=== PATIENT | male | born 2000 | race African-American/Black ===

== ENCOUNTER 2021-12-07 10:37 | Inpatient (IN) | payer BC, SELFPAY ==
--- NOTE | 2021-12-07 10:48 | ED_ITS ---
HPI - Psych General Chief Complaint: Psychiatric Symptoms Stated Complaint: section 12 Time Seen by Provider: 12/07/21 10:48 Source: patient Mode of arrival: EMS Limitations: no limitations History of Present Illness MD complaint: suicidal ideation and feels depressed Onset (ago): week(s) (couple) Duration: getting worse History of same: Yes Relieving factors: none Exacerbating factors: none Context: recent alcohol abuse Associated psychiatric symptoms: depression and suicidal ideation Associated symptoms: denies other symptoms Treatments prior to arrival: placed on mental health hold If self harm: admits thoughts of self harm Related Data Allergies Allergy/AdvReac Type Severity Reaction Status Date / Time No Known Allergies Allergy Verified 12/07/21 11:09 Review of Systems Review of Systems: Constitutional : No Fever, No Chills ENT/Mouth : No Ear Pain, No Nasal Congestion, No sore throat Eyes: No Eye Pain, No Swelling, No Redness Cardiovascular : No Chest Pain, No SOB Respiratory : No Cough, No Sputum, No Dyspnea Gastrointestinal : No Nausea, No Vomiting, No Diarrhea, No Hematochezia, No Melena Genitourinary : No Dysuria, No Urinary Frequency, No Hematuria Musculoskeletal : No Myalgias Skin : No Skin Lesions, No rash Neuro : No Weakness, No Numbness, No Paresthesias, No Dizziness, No Headache Psych : positive Anxiety, positive Depression, positive SI no HI Heme/Lymph: No Lymphadenopathy Endocrine : No Polyuria, No Polydipsia All other systems reviewed and are negative [facility] Past Medical History Attestation statement: The following information was validated with the patient. Medical History PTSD (post-traumatic stress disorder) Social History Social History Alcohol intake: current Substance Use Type: Marijuana Advance Directives: No Advance Directives Information Provided: No Physical Exam Vital Signs: Vital Signs: Last Vital Signs Temp 98.8 F 12/07/21 10:50 Pulse 93 12/07/21 10:50 Resp 18 12/07/21 10:50 BP 161/85 H 12/07/21 10:50 Pulse Ox 100 12/07/21 10:50 BMI result Body Mass Index 24.1 Appearance: Alert. Oriented X3. No acute distress. Calm and cooperative Eyes: Pupils equal, round and reactive to light. ENT: Pharynx normal. Neck: Normal inspection. Neck supple. CVS: Normal heart rate and rhythm. Pulses normal. Respiratory: No respiratory distress. Breath sounds normal. Abdomen: Soft and nontender. Skin: Skin warm and dry. Normal skin color. Normal skin turgor. Extremities: No lower extremity edema. No calf ttp Neuro: Oriented X 3. No motor deficit. No sensory deficit. Cn 2-12 intact Course Course Course Narrative: Physician observation started at 1147am. Patient placed in physician observation because the patient needed more time for CARE team to assess the need for inpatient psych admission. At the time observation was started the patient's vitals were stable, patient is alert and oriented, Neuro: nonfocal, CV RRR, Lungs clear inpatient bed search per CARE team MDM - Psych MDM Narrative Medical decision making narrative: 21 yo male with hx of PTSD and recent dx of bipolar here with SI and worsening depression at this time on section 12 by counselor from [facility] - will need clearance labs and CARE team consult Lab Data Result diagrams: 12/07/21 11:45 12/07/21 11:45 Labs: Lab Results 12/07/21 12/07/21 12/07/21 Range/Units 11:44 11:45 11:45 WBC 8.2 (4.8-10.8) X10*3/uL RBC 5.55 (4.60-5.80) X10*6/uL Hgb 16.0 (14.0-18.0) g/dl Hct 46.8 (42.0-52.0) % MCV 84.3 (80.0-98.0) fL MCH 28.8 (27.0-33.0) pg MCHC 34.2 (31.0-36.0) g/dl RDW 16.0 (11.0-16.0) % Plt Count 271 (160-400) X10*3/uL MPV 9.1 L (9.4-12.4) fL Immature Gran % (Auto) 0.5 H (0.0-0.4) % Neut % (Auto) 73.0 (45-73) % Lymph % (Auto) 19.5 L (20-40) % Tompkins % (Auto) 5.3 (2-11) % Eos % (Auto) 1.5 (0-4) % Baso % (Auto) 0.2 (0-2) % Lymph # (Auto) 1.6 (1.2-4.9) X10*3/uL Tompkins # (Auto) 0.4 (0.1-1.2) X10*3/uL Eos # (Auto) 0.1 (0.0-0.4) X10*3/uL Baso # (Auto) 0.0 (0.0-0.2) X10*3/uL Abs Immat Gran (auto) 0.04 H (0.00-0.03) X10*3/uL Absolute Neuts (auto) 6.0 (2.0-8.3) x10*3/uL Absolute Nucleated RBC 0.000 (0.0-0.012) X10*3/uL Nucleated RBC % (auto) 0.0 (0.0-0.2) /100WBC Sodium 139 (135-145) mmol/L Potassium 4.6 (3.3-5.1) mmol/L Chloride 105 (96-108) mmol/L Carbon Dioxide 25 (22-29) mmol/L Anion Gap 14 (12-20) BUN 8 L (9-16) mg/dL Creatinine 0.78 (0.5-1.4) mg/dL Estim Creat Clear Calc 144.9 Estimated GFR > 60 Random Glucose 81 (60-115) mg/dL Calcium 10.1 (8.4-10.2) mg/dL Magnesium 1.9 (1.6-2.6) mg/dL Total Bilirubin 0.6 (0.0-1.0) mg/dL AST 20 (5-37) U/L ALT 10 (0-40) U/L Alkaline Phosphatase 94 (39-117) U/L Total Protein 8.2 H (6.5-8.0) g/dL Albumin 4.8 (3.5-5.0) g/dL Urine Test (NEGATIVE) Urine Opiates Screen (Not Detect) Urine Fentanyl Screen (Not Detect) Ur Barbiturates Screen (Not Detect) Ur Phencyclidine Scrn (Not Detect) Ur Amphetamines Screen (Not Detect) U Benzodiazepines Scrn (Not Detect) Urine Cocaine Screen (Not Detect) U Marijuana (THC) Screen (Not Detect) Ethyl Alcohol mg/dL COVID-19 (DARRICK) Negative (Negative) COVID-19 Clin Com See Note 12/07/21 12/07/21 12/07/21 Range/Units 11:45 15:42 15:42 WBC (4.8-10.8) X10*3/uL RBC (4.60-5.80) X10*6/uL Hgb (14.0-18.0) g/dl Hct (42.0-52.0) % MCV (80.0-98.0) fL MCH (27.0-33.0) pg MCHC (31.0-36.0) g/dl RDW (11.0-16.0) % Plt Count (160-400) X10*3/uL MPV (9.4-12.4) fL Immature Gran % (Auto) (0.0-0.4) % Neut % (Auto) (45-73) % Lymph % (Auto) (20-40) % Tompkins % (Auto) (2-11) % Eos % (Auto) (0-4) % Baso % (Auto) (0-2) % Lymph # (Auto) (1.2-4.9) X10*3/uL Tompkins # (Auto) (0.1-1.2) X10*3/uL Eos # (Auto) (0.0-0.4) X10*3/uL Baso # (Auto) (0.0-0.2) X10*3/uL Abs Immat Gran (auto) (0.00-0.03) X10*3/uL Absolute Neuts (auto) (2.0-8.3) x10*3/uL Absolute Nucleated RBC (0.0-0.012) X10*3/uL Nucleated RBC % (auto) (0.0-0.2) /100WBC Sodium (135-145) mmol/L Potassium (3.3-5.1) mmol/L Chloride (96-108) mmol/L Carbon Dioxide (22-29) mmol/L Anion Gap (12-20) BUN (9-16) mg/dL Creatinine (0.5-1.4) mg/dL Estim Creat Clear Calc Estimated GFR Random Glucose (60-115) mg/dL Calcium (8.4-10.2) mg/dL Magnesium (1.6-2.6) mg/dL Total Bilirubin (0.0-1.0) mg/dL AST (5-37) U/L ALT (0-40) U/L Alkaline Phosphatase (39-117) U/L Total Protein (6.5-8.0) g/dL Albumin (3.5-5.0) g/dL Urine Test NEGATIVE (NEGATIVE) Urine Opiates Screen Not Detected (Not Detect) Urine Fentanyl Screen Not Detected (Not Detect) Ur Barbiturates Screen Not Detected (Not Detect) Ur Phencyclidine Scrn Not Detected (Not Detect) Ur Amphetamines Screen Not Detected (Not Detect) U Benzodiazepines Scrn Not Detected (Not Detect) Urine Cocaine Screen Not Detected (Not Detect) U Marijuana (THC) Screen POSITIVE H (Not Detect) Ethyl Alcohol < 10 mg/dL COVID-19 (DARRICK) (Negative) COVID-19 Clin Com Discharge Plan Discharge Clinical Impression: Depression Patient Disposition: Still a Patient
[2021-12-07 10:50] VITALS: BP 150/90; BP 161/85; PULSE 93; RESP 18; TEMP 37.1; O2SAT 100; BMI 24.1
[2021-12-07 11:52] LABS: MANUAL DIFF FLAG NO
[2021-12-07 12:01] LABS: Basophils Percent Auto 0.2 % (0-2); Eosinophils Absolute Auto 0.1 X10*3/uL (0.0-0.4); Eosinophils Percent Auto 1.5 % (0-4); Hematocrit 46.8 % (42.0-52.0); Imm Gran Abs Auto 0.04 X10*3/uL (0.00-0.03); Imm Gran Pct Auto 0.5 % (0.0-0.4); Lymphocytes Absolute Auto 1.6 X10*3/uL (1.2-4.9); Lymphocytes Percent Auto 19.5 % (20-40); Mean Corpuscular HGB Conc 34.2 g/dl (31.0-36.0); Mean Corpuscular Hemoglobin 28.8 pg (27.0-33.0); Mean Corpuscular Volume 84.3 fL (80.0-98.0); Mean Platelet Volume 9.1 fL (9.4-12.4); Monocytes Absolute Auto 0.4 X10*3/uL (0.1-1.2); Monocytes Percent Auto 5.3 % (2-11); Platelet Count 271 X10*3/uL (160-400); Red Blood Count 5.55 X10*6/uL (4.60-5.80); White Blood Count 8.2 X10*3/uL (4.8-10.8)
[2021-12-07 12:07] LABS: COVID-19 Test Negative (Negative)
[2021-12-07] MEDS: Nicotine Polacrilex 2 MG GUM BUCCAL ×2 (12:13→15:03)
[2021-12-07 12:19] LABS: Ethanol < 10 mg/dL
[2021-12-07 12:21] LABS: Alanine Aminotransferase 10 U/L (0-40); Albumin Level 4.8 g/dL (3.5-5.0); Alkaline Phosphatase 94 U/L (39-117); Anion Gap 14 (12-20); Aspartate Amino Transferase 20 U/L (5-37); Bilirubin Total 0.6 mg/dL (0.0-1.0); Blood Urea Nitrogen 8 mg/dL (9-16); Calcium 10.1 mg/dL (8.4-10.2); Carbon Dioxide 25 mmol/L (22-29); Chloride 105 mmol/L (96-108); Creatinine Clr Calc Pharmacy 144.9; Estimated Glomerular Filt Rate > 60; Glucose Random 81 mg/dL (60-115); Magnesium 1.9 mg/dL (1.6-2.6); Potassium 4.6 mmol/L (3.3-5.1); Sodium 139 mmol/L (135-145); Total Protein 8.2 g/dL (6.5-8.0)
[2021-12-07 16:06] LABS: Amphetamine Screen Urine Not Detected (Not Detect); Barbiturates, Urine Not Detected (Not Detect); Benzodiazepines Screen Urine Not Detected (Not Detect); Cannabinoid Screen Urine POSITIVE (Not Detect); Cocaine Screen Urine Not Detected (Not Detect); Fentanyl, urine Not Detected (Not Detect); Opiate Screen Urine Not Detected (Not Detect); Phencyclidine Screen Urine Not Detected (Not Detect); UPreg QC Valid YES; Urine Pregnancy NEGATIVE (NEGATIVE)
[2021-12-07 17:27] VITALS: BP 129/81; PULSE 64; RESP 16; TEMP 36.8; O2SAT 98
--- NOTE | 2021-12-07 18:08 | MHC.CARE ---
Patient evaluated by the CARE Team to need inpatient psychiatric care, will likely be admitted tomorrow. He is not on a Section 12A and if he asks to leave he cannot be discharged without extensive safety planning and coordination with [facility].
[2021-12-07 19:21] VITALS: BP 145/67; PULSE 60; RESP 14; TEMP 37.1; O2SAT 99
--- NOTE | 2021-12-08 | ECG_ITS ---
Test Reason : MEDICAL CLEARANCE Blood Pressure : / mmHG Vent. Rate : 065 BPM Atrial Rate : 065 BPM P-R Int : 192 ms QRS Dur : 102 ms QT Int : 352 ms P-R-T Axes : 063 -26 045 degrees QTc Int : 366 ms Normal sinus rhythm with sinus arrhythmia Incomplete right bundle branch block Borderline ECG No previous ECGs available Referred By: Naina Pettit Electronically Signed By:Bill Pitts
[2021-12-08 01:58] VITALS: BP 130/68; PULSE 61; RESP 17; TEMP 36.8; O2SAT 100
[2021-12-08] MEDS: Nicotine Polacrilex 2 MG GUM BUCCAL ×5 (03:01→22:07)
--- NOTE | 2021-12-08 05:53 | PC.NURSE ---
Patient slept through the night, no distress observed/reported, behavior calm and cooperative, unable to verify medication due to pharmacy issue, disposition per care team is section 12 inpatient bed search, will continue to monitor.
--- NOTE | 2021-12-08 07:22 | PC.NURSE ---
patient appears to remain asleep at present respirations are even and unlabored, patient appears in no distress
[2021-12-08 07:38] VITALS: BP 141/79; PULSE 70; RESP 13; TEMP 36.9; O2SAT 99
[2021-12-08 15:57] VITALS: BMI 23.1
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
--- NOTE | 2021-12-08 19:12 | PC.NURSE ---
Patient submitted 3 day note.
[2021-12-08 20:00] VITALS: BP 144/79; PULSE 72; RESP 18; TEMP 36.8; O2SAT 99
[2021-12-08] MEDS: traZODone HCL 50 MG TABLET PO (22:07)
[2021-12-08] MEDS: hydrOXYzine HCL 25 MG TABLET PO (22:07)
[2021-12-09] MEDS: hydrOXYzine HCL 25 MG TABLET PO (05:03)
[2021-12-09 07:00] VITALS: BMI 22.9
[2021-12-09 08:20] VITALS: BP 126/72; PULSE 60; RESP 16; TEMP 36.7; O2SAT 98
[2021-12-09 09:18] LABS: Estimated Average Glucose 82 mg/dL; Hemoglobin A1c % 4.5 %
[2021-12-09 09:45] LABS: Alanine Aminotransferase 9 U/L (0-40); Albumin Level 4.3 g/dL (3.5-5.0); Alkaline Phosphatase 81 U/L (39-117); Anion Gap 11 (12-20); Aspartate Amino Transferase 18 U/L (5-37); Bilirubin Total 0.9 mg/dL (0.0-1.0); Blood Urea Nitrogen 9 mg/dL (9-16); Calcium 9.8 mg/dL (8.4-10.2); Carbon Dioxide 26 mmol/L (22-29); Chloride 105 mmol/L (96-108); Cholesterol 146 mg/dL; Creatinine Clr Calc Pharmacy 141.3; Estimated Glomerular Filt Rate > 60; Glucose Fasting 67 mg/dL (60-99); HDL Cholesterol 48 mg/dL; LDL Cholesterol Calculated 82 mg/dl; Potassium 4.4 mmol/L (3.3-5.1); Sodium 138 mmol/L (135-145); Total Protein 7.3 g/dL (6.5-8.0); Triglycerides 80 mg/dL
[2021-12-09 09:58] LABS: Thyroid Stimulating Hormone 1.07 uIU/mL (0.32-4.0)
[2021-12-09 10:19] LABS: Folate 11.9 ng/mL (> or = 4.0); Vitamin B12 280 pg/mL (200-900)
[2021-12-09] MEDS: Nicotine Polacrilex 2 MG GUM BUCCAL (14:50)
[2021-12-09 18:00] VITALS: BP 123/69; PULSE 59; RESP 16; TEMP 36.7; O2SAT 99
--- NOTE | 2021-12-09 20:01 | P.PNPSI_ITS ---
Subjective Subjective Date of Service: 12/09/21 Reason For Visit: SI Subjective Notes: [place]patrick Warning, Conditional Voluntary and 3 Day Healthcare Proxy: No Guardianship: No Medical Problems Affecting Mental Status: No Interim History: Patient seen and discussed with team. Patient evaluated this today and upon interview he reports Im doing better, I think im doing good. Today he was able to resolve his housing situation, spoke with landlord to sort out a lease. He is also working on getting his car registered. Continues to report interest in starting medication to treat depression, as he says he struggles with it daily and feels like this makes it hard to feel like i'm adding to society, I can barely function. In the milieu, patient is safe and appropriate in behavior. Denies SI/SIB/HI upon inquiry. Denies irritability or assaultive ideation. Says he feels safe. Medication Compliance: Yes Side effects from medications: No Attending Groups: Yes Review of Systems Acute medical concerns: No Medical Review of Systems: unchanged Mental Status Exam Mental Status Exam Narrative: A&O. Well groomed, casual attire, long hair in dreadlocks. Better eye contact, attentive. No Tics or Tremors. No abnormal involuntary movements. Calm, somewhat guarded but overall cooperative and engaged. Non-pressured speech, spontaneous with regular rate and rhythm, normal volume and prosody. No prolonged speech latency or dysarthria. Mood is ?depressed,? affect is blunted. Currently denies SI/SIB/HI upon inquiry. Denies A/VH or delusional thought content. Thoughts are coherent, organized. No known cognitive or memory impairment. Insight/ Judgment fair and adequate. Diagnostics Vital Signs (24Hr): Vital Signs - 24 hr 12/09/21 08:20 12/09/21 18:00 Temperature 98.0 F 98.0 F Pulse Rate 60 59 Respiratory Rate 16 16 Blood Pressure 126/72 123/69 Pulse Oximetry 98 99 BMI result Body Mass Index 22.9 Labs Results: 12/07/21 11:45 12/09/21 08:45 Labs: Laboratory Results - last 48 hr 12/09/21 12/09/21 12/09/21 08:45 08:45 08:45 Sodium 138 Potassium 4.4 Chloride 105 Carbon Dioxide 26 Anion Gap 11 L BUN 9 Creatinine 0.80 Estim Creat Clear Calc 141.3 Estimated GFR > 60 Fasting Glucose 67 Estimat Average Glucose 82 Hemoglobin A1c % 4.5 Calcium 9.8 Total Bilirubin 0.9 AST 18 ALT 9 Alkaline Phosphatase 81 Total Protein 7.3 Albumin 4.3 Triglycerides 80 Cholesterol 146 LDL Cholesterol, Calc 82 HDL Cholesterol 48 Vitamin B12 280 Folate 11.9 TSH 1.07 Medications Medications Current Medications Acetaminophen (Acetaminophen 325 Mg Tablet) 650 mg PO Q6H PRN PRN Reason: Headache/Pain Mild Scale (1-3) Al Hydroxide/Mg Hydroxide (Magnesium Hydrox/Alum Hydrox 30 Ml Oral.Susp) 30 ml PO Q6H PRN PRN Reason: Heartburn/Nausea Hydroxyzine HCl (Hydroxyzine Hcl 25 Mg Tablet) 25 mg PO Q6H PRN PRN Reason: Anxiety Last Admin: 12/10/21 03:31 Dose: 25 mg Documented by: [place] Carbonate ([place] Carbonate Er 300 Mg Tablet.Er) 300 mg PO BEDTIME [facility] Last Admin: 12/09/21 22:55 Dose: 300 mg Documented by: Magnesium Hydroxide (Milk Of Magnesia 30 Ml Oral.Susp) 30 ml PO DAILY PRN PRN Reason: Constipation Nicotine Polacrilex (Nicotine Polacrilex 2 Mg Gum) 2 mg BUCCAL Q2H PRN PRN Reason: Nicotine Cravings Last Admin: 12/09/21 14:50 Dose: 2 mg Documented by: Non-Formulary Medication (Testosterone Cypionate) 65 mg SUBCUT Fr@1200 [facility] Stop: 12/10/21 12:01 Trazodone HCl (Trazodone Hcl 50 Mg Tablet) 50 mg PO BEDTIME PRN PRN Reason: Insomnia Last Admin: 12/10/21 03:32 Dose: 50 mg Documented by: Allergies Allergies Allergy/AdvReac Type Severity Reaction Status Date / Time No Known Allergies Allergy Verified 12/07/21 11:09 Assessment & Plan Assessment & Plan (1) Bipolar II disorder: Status: Acute Code(s): F31.81 - Bipolar II disorder (2) Alcohol use disorder, mild, abuse: Status: Acute Code(s): F10.10 - Alcohol abuse, uncomplicated (3) Post traumatic stress disorder (PTSD): Status: Acute Code(s): F43.10 - Post-traumatic stress disorder, unspecified Plan Aria is a 21 y.o. transgender male, prefers he/him pronouns. He carries a dx of PTSD and Bipolar DO. He presented to [facility] on 12/07/21 via 12a from counselor at [facility] due to SI and worsening depression. Disclosed he recently had intrusive thoughts to jump from friend?s car. He has been diagnosed with bipolar disorder, unclear if he has had a manic episode, however endorses hx of hypomanic sx and has had SE of increased agitation on serotonergic medication. Has been engaging in daily drinking behavior, 3-5 drinks. Denies withdrawal. Signed a 3 day notice. Plan: Pt reports some benefit on abilify TRINIDAD, recently increased to 300 mg. He is interested in medication to target sx of depression. Discussed lamictal, lithium. Pt requested educational handouts and would like to discuss this further tomorrow. 12/09: Start lithium ER 300 mg QHS for sx of depression, mood instability, and hx of SI. Renal labs wnl. Monitor response to medications. Monitor for safety in the milieu. Discharge on stabilization. Patient seen. Chart reviewed. Discussed with team. Obtain collateral contact info?as needed I spent minutes with the patient and/or on the patient floor today, great er than?50% of which was spent counseling/coordinating care. Patient educated on: diagnosis, medication risk/benefits and therapeutic strategies Reason for contiued inpatient stay Substantial Risk for: harm to self, rapid decompensation and med/psych decompensation
[2021-12-09] MEDS: traZODone HCL 50 MG TABLET PO (22:25)
[2021-12-09] MEDS: Lithium Carbonate ER 300 MG TABLET.ER PO (22:55)
[2021-12-10] MEDS: hydrOXYzine HCL 25 MG TABLET PO ×2 (03:31→21:38)
[2021-12-10] MEDS: traZODone HCL 50 MG TABLET PO ×3 (03:32→22:45)
[2021-12-10 08:30] VITALS: BP 133/62; PULSE 60; RESP 15; TEMP 36.8; O2SAT 98
--- NOTE | 2021-12-10 15:15 | P.PNPSI_ITS ---
Subjective Subjective Date of Service: 12/10/21 Reason For Visit: SI Interim History: pt found at the end of his visit with friend. agreeable, cooperative. would prefer to discharge today. able to wait until monday. no complaints or requests. planning to remain at the [employer] through the end of the semester. no SI since day of hospitalization. per staff, 3-day up 12/13. dep 04/17. no anx. no AVH. overwhelmed with life. nightmares every other night for the past 3 weeks. isolative. attending groups. up at 0330, got trazodone and atarax. pt says he has no coping skills. Mental Status Exam Mental Status Exam Narrative: A&O. Well groomed, casual attire, long hair in dreadlocks. Better eye contact, attentive. No Tics or Tremors. No abnormal involuntary movements. Calm, somewhat guarded but overall cooperative and engaged. Non-pressured speech, spontaneous with regular rate and rhythm, normal volume and prosody. No prolonged speech latency or dysarthria. Mood is ?fine,? affect is flexible. Currently denies SI/SIB/HI upon inquiry. Denies A/VH or delusional thought content. Thoughts are coherent, organized. No known cognitive or memory impairment. Insight/ Judgment fair and adequate. Diagnostics Vital Signs (24Hr): Vital Signs - 24 hr 12/09/21 18:00 12/10/21 08:30 Temperature 98.0 F 98.2 F Pulse Rate 59 60 Respiratory Rate 16 15 Blood Pressure 123/69 133/62 Pulse Oximetry 99 98 BMI result Body Mass Index 22.9 Labs Results: 12/07/21 11:45 12/09/21 08:45 Labs: Laboratory Results - last 48 hr 12/09/21 12/09/21 12/09/21 08:45 08:45 08:45 Sodium 138 Potassium 4.4 Chloride 105 Carbon Dioxide 26 Anion Gap 11 L BUN 9 Creatinine 0.80 Estim Creat Clear Calc 141.3 Estimated GFR > 60 Fasting Glucose 67 Estimat Average Glucose 82 Hemoglobin A1c % 4.5 Calcium 9.8 Total Bilirubin 0.9 AST 18 ALT 9 Alkaline Phosphatase 81 Total Protein 7.3 Albumin 4.3 Triglycerides 80 Cholesterol 146 LDL Cholesterol, Calc 82 HDL Cholesterol 48 Vitamin B12 280 Folate 11.9 TSH 1.07 Medications Medications Current Medications Acetaminophen (Acetaminophen 325 Mg Tablet) 650 mg PO Q6H PRN PRN Reason: Headache/Pain Mild Scale (1-3) Al Hydroxide/Mg Hydroxide (Magnesium Hydrox/Alum Hydrox 30 Ml Oral.Susp) 30 ml PO Q6H PRN PRN Reason: Heartburn/Nausea Hydroxyzine HCl (Hydroxyzine Hcl 25 Mg Tablet) 25 mg PO Q6H PRN PRN Reason: Anxiety Last Admin: 12/10/21 03:31 Dose: 25 mg Documented by: [place] Carbonate ([place] Carbonate Er 300 Mg Tablet.Er) 300 mg PO BEDTIME [facility] Last Admin: 12/09/21 22:55 Dose: 300 mg Documented by: Magnesium Hydroxide (Milk Of Magnesia 30 Ml Oral.Susp) 30 ml PO DAILY PRN PRN Reason: Constipation Nicotine Polacrilex (Nicotine Polacrilex 2 Mg Gum) 2 mg BUCCAL Q2H PRN PRN Reason: Nicotine Cravings Last Admin: 12/09/21 14:50 Dose: 2 mg Documented by: Trazodone HCl (Trazodone Hcl 50 Mg Tablet) 50 mg PO BEDTIME PRN PRN Reason: Insomnia Last Admin: 12/10/21 03:32 Dose: 50 mg Documented by: Allergies Allergies Allergy/AdvReac Type Severity Reaction Status Date / Time No Known Allergies Allergy Verified 12/07/21 11:09 Assessment & Plan Assessment & Plan (1) Bipolar II disorder: Status: Acute Code(s): F31.81 - Bipolar II disorder (2) Alcohol use disorder, mild, abuse: Status: Acute Code(s): F10.10 - Alcohol abuse, uncomplicated (3) Post traumatic stress disorder (PTSD): Status: Acute Code(s): F43.10 - Post-traumatic stress disorder, unspecified Plan Aria is a 21 y.o. transgender male, prefers he/him pronouns. He carries a dx of PTSD and Bipolar DO. He [place] [facility] [place] via 12a from counselor at [facility] due to SI and worsening depression. Disclosed he recently had intrusive thoughts to jump from friend?s car. He has been diagnosed with bipolar disorder, unclear if he has had a manic episode, however endorses hx of hypomanic sx and has had SE of increased agitation on serotonergic medication. Has been engaging in daily drinking behavior, 3-5 drinks. Denies withdrawal. Signed a 3 day notice. Plan: Pt reports some benefit on abilify TRINIDAD, recently increased to 300 mg. He is interested in medication to target sx of depression. Discussed nakul l ithium. Pt requested educational handouts and would like to discuss this further tomorrow. 12/09: Start lithium ER 300 mg QHS for sx of depression, mood instability, and hx of SI. Renal labs wnl. 12/10: no change in mgmt Monitor response to medications. Monitor for safety in the milieu. Discharge on stabilization. Patient seen. Chart reviewed. Discussed with team. Obtain collateral contact info?as needed I spent ___25___ minutes with the patient and/or on the patient floor today, greater than?50% of which was spent counseling/coordinating care. Reason for contiued inpatient stay Substantial Risk for: rapid decompensation
[2021-12-10] MEDS: Nicotine Polacrilex 2 MG GUM BUCCAL (15:16)
--- NOTE | 2021-12-10 15:39 | PC.NURSE ---
This RN offered to administer testosterone provided by hospital pharmacy. Patient reported that they have taken this specific brand before and had an adverse reaction. This RN notified pharmacy and Masha Gutierrez. Patient reported a preference to take their own testosterone from home, but this RN was advised from pharmacy that we are unable to administer patients own medication due to the previous unknown storage conditions of the drug. Masha Gutierrez notified. Patient was notified and verbalized understanding.
[2021-12-10 20:12] VITALS: BP 139/70; PULSE 72; RESP 18; TEMP 36.9; O2SAT 98
[2021-12-10] MEDS: Lithium Carbonate ER 300 MG TABLET.ER PO (21:28)
[2021-12-11 08:00] VITALS: BP 130/69; PULSE 60; RESP 16; TEMP 36.6; O2SAT 100
--- NOTE | 2021-12-11 09:34 | P.PNPSI_ITS ---
Subjective Subjective Date of Service: 12/11/21 Reason For Visit: SI Interim History: pt reports feeling better, denies SI/HI. Pt reports sleeping well. He does not think he needs to be here and hopes to be discharged on Monday. He reports he takes periactin for appetite as needed 4 mg. This was added. Per nursing, visible in unit, social with select peers. 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 Well groomed, casual attire, long hair in dreadlocks. Better eye contact, attentive. No Tics or Tremors. No abnormal involuntary movements. Calm, somewhat guarded but overall cooperative and engaged. Non-pressured speech, spontaneous with regular rate and rhythm, normal volume and prosody. No prolonged speech latency or dysarthria. Mood is ?fine,? affect is flexible. Currently denies SI/SIB/HI upon inquiry. Denies A/VH or delusional thought content. Thoughts are coherent, organized. No known cognitive or memory impairment. Insight/ Judgment fair and adequate. Diagnostics Vital Signs (24Hr): Vital Signs - 24 hr 12/12/21 18:00 12/13/21 07:49 Temperature 98.8 F 98.4 F Pulse Rate 69 70 Respiratory Rate 16 16 Blood Pressure 138/69 123/57 L Pulse Oximetry 96 99 BMI result Body Mass Index 22.9 Labs Results: 12/07/21 11:45 12/09/21 08:45 Labs: Laboratory Results - last 48 hr 12/12/21 18:17 [place] 0.14 L Medications Medications Current Medications Acetaminophen (Acetaminophen 325 Mg Tablet) 650 mg PO Q6H PRN PRN Reason: Headache/Pain Mild Scale (1-3) Al Hydroxide/Mg Hydroxide (Magnesium Hydrox/Alum Hydrox 30 Ml Oral.Susp) 30 ml PO Q6H PRN PRN Reason: Heartburn/Nausea Cyproheptadine HCl (Cyproheptadine Hcl 4 Mg Tablet) 4 mg PO Q6H PRN PRN Reason: anxiety/poor appetite Last Admin: 12/13/21 08:40 Dose: 4 mg Documented by: [place] Carbonate ([place] Carbonate Er 300 Mg Tablet.Er) 300 mg PO BEDTIME [facility] Last Admin: 12/12/21 22:13 Dose: 300 mg Documented by: Magnesium Hydroxide (Milk Of Magnesia 30 Ml Oral.Susp) 30 ml PO DAILY PRN PRN Reason: Constipation Nicotine Polacrilex (Nicotine Polacrilex 2 Mg Gum) 2 mg BUCCAL Q2H PRN PRN Reason: Nicotine Cravings Last Admin: 12/12/21 16:45 Dose: 2 mg Documented by: Trazodone HCl (Trazodone Hcl 50 Mg Tablet) 150 mg PO BEDTIME [facility] Last Admin: 12/12/21 22:12 Dose: 150 mg Documented by: Allergies Allergies Allergy/AdvReac Type Severity Reaction Status Date / Time No Known Allergies Allergy Verified 12/07/21 11:09 Assessment & Plan Assessment & Plan (1) Bipolar II disorder: Status: Acute Code(s): F31.81 - Bipolar II disorder (2) Alcohol use disorder, mild, abuse: Status: Acute Code(s): F10.10 - Alcohol abuse, uncomplicated (3) Post traumatic stress disorder (PTSD): Status: Acute Code(s): F43.10 - Post-traumatic stress disorder, unspecified Plan Aria is a 21 y.o. transgender male, prefers he/him pronouns. He carries a dx of PTSD and Bipolar DO. He presented to [facility] on 12/07/21 via 12a from counselor at [facility] due to SI and worsening depression. Disclosed he recently had intrusive thoughts to jump from friend?s car. He has been diagnosed with bipolar disorder, unclear if he has had a manic episode, however endorses hx of hypomanic sx and has had SE of increased agitation on serotonergic medication. Has been engaging in daily drinking behavior, 3-5 drinks. Denies withdrawal. Signed a 3 day notice. Plan: Pt reports some benefit on abilify TRINIDAD, recently increased to 300 mg. He is interested in medication to target sx of depression. Discussed lamictal, lithium. Pt requested educational handouts and would like to discuss this further tomorrow. 12/09: Start lithium ER 300 mg QHS for sx of depression, mood instability, and hx of SI. Renal labs wnl. 3/4: no change in mgmt 12/11- no med changes, lithium level scheduled for 12/12. Monitor response to medications. Monitor for safety in the milieu. Discharge on stabilization. Patient seen. Chart reviewed. Discussed with team. Obtain collateral contact info?as needed I spent minutes with the patient and/or on the patient floor today, greater than?50% of which was spent counseling/coordinating care. Reason for contiued inpatient stay Substantial Risk for: stable for discharge
[2021-12-11] MEDS: Nicotine Polacrilex 2 MG GUM BUCCAL ×3 (09:55→19:16)
[2021-12-11] MEDS: Cyproheptadine HCl 4 MG TABLET PO (09:55)
[2021-12-11 20:45] VITALS: BP 135/75; PULSE 65; RESP 16; TEMP 36.7; O2SAT 99
[2021-12-11] MEDS: traZODone HCL 50 MG TABLET 150 MG PO (22:04)
[2021-12-11] MEDS: Lithium Carbonate ER 300 MG TABLET.ER PO (22:04)
[2021-12-12 08:00] VITALS: BP 117/64; PULSE 58; RESP 16; TEMP 36.6; O2SAT 99
[2021-12-12] MEDS: Cyproheptadine HCl 4 MG TABLET PO ×2 (08:54→16:45)
--- NOTE | 2021-12-12 09:37 | HO.PSYCHPN ---
Subjective Subjective Date of Service: 12/12/21 Reason For Visit: SI Interim History: pt continues to report feeling better, denies SI/HI. Pt reports sleeping well. He does not think he needs to be here and hopes to be discharged on Monday. He reports he takes periactin for appetite as needed 4 mg. This was added. Per nursing, visible in unit, social with select peers. Medication Compliance: Yes Side effects from medications: No Review of Systems Review of Systems CVS: No c/o chest pain, palpitations, no SOB SCHEDULING MANAGER: No c/o dizziness, headache GI: No c/o Nausea, Vomiting, diarrhea, constipation or heartburn -Denies hx of seizures -Denies hx of TBI/ concussion -Denies hx of cardiac issues Mental Status Exam Mental Status Exam Narrative: A&O. Well groomed, casual attire, long hair in dreadlocks. Better eye contact, attentive. No Tics or Tremors. No abnormal involuntary movements. Calm, somewhat guarded but overall cooperative and engaged. Non-pressured speech, spontaneous with regular rate and rhythm, normal volume and prosody. No prolonged speech latency or dysarthria. Mood is ?fine,? affect is flexible. Currently denies SI/SIB/HI upon inquiry. Denies A/VH or delusional thought content. Thoughts are coherent, organized. No known cognitive or memory impairment. Insight/ Judgment fair and adequate. Diagnostics Vital Signs (24Hr): Vital Signs - 24 hr 12/12/21 18:00 12/13/21 07:49 Temperature 98.8 F 98.4 F Pulse Rate 69 70 Respiratory Rate 16 16 Blood Pressure 138/69 123/57 L Pulse Oximetry 96 99 BMI result Body Mass Index 22.9 Labs Results: 12/07/21 11:45 12/09/21 08:45 Labs: Laboratory Results - last 48 hr 12/12/21 18:17 [place] 0.14 L Medications Medications Current Medications Acetaminophen (Acetaminophen 325 Mg Tablet) 650 mg PO Q6H PRN PRN Reason: Headache/Pain Mild Scale (1-3) Al Hydroxide/Mg Hydroxide (Magnesium Hydrox/Alum Hydrox 30 Ml Oral.Susp) 30 ml PO Q6H PRN PRN Reason: Heartburn/Nausea Cyproheptadine HCl (Cyproheptadine Hcl 4 Mg Tablet) 4 mg PO Q6H PRN PRN Reason: anxiety/poor appetite Last Admin: 12/13/21 08:40 Dose: 4 mg Documented by: [place] Carbonate ([place] Carbonate Er 300 Mg Tablet.Er) 300 mg PO BEDTIME [facility] Last Admin: 12/12/21 22:13 Dose: 300 mg Documented by: Magnesium Hydroxide (Milk Of Magnesia 30 Ml Oral.Susp) 30 ml PO DAILY PRN PRN Reason: Constipation Nicotine Polacrilex (Nicotine Polacrilex 2 Mg Gum) 2 mg BUCCAL Q2H PRN PRN Reason: Nicotine Cravings Last Admin: 12/12/21 16:45 Dose: 2 mg Documented by: Trazodone HCl (Trazodone Hcl 50 Mg Tablet) 150 mg PO BEDTIME [facility] Last Admin: 12/12/21 22:12 Dose: 150 mg Documented by: Allergies Allergies Allergy/AdvReac Type Severity Reaction Status Date / Time No Known Allergies Allergy Verified 12/07/21 11:09 Assessment & Plan Assessment & Plan (1) Bipolar II disorder: Status: Acute Code(s): F31.81 - Bipolar II disorder (2) Alcohol use disorder, mild, abuse: Status: Acute Code(s): F10.10 - Alcohol abuse, uncomplicated (3) Post traumatic stress disorder (PTSD): Status: Acute Code(s): F43.10 - Post-traumatic stress disorder, unspecified Plan Aria is a 21 y.o. transgender male, prefers he/him pronouns. He carries a dx of PTSD and Bipolar DO. He [place] [facility] [place]07[place] via 12a from counselor at [facility] due to SI and worsening depression. Disclosed he recently had intrusive thoughts to jump from friend?s car. He has been diagnosed with bipolar disorder, unclear if he has had a manic episode, however endorses hx of hypomanic sx and has had SE of increased agitation on serotonergic medication. Has been engaging in daily drinking behavior, 3-5 drinks. Denies withdrawal. Signed a 3 day notice. Plan: Pt reports some benefit on abilify TRINIDAD, recently increased to 300 mg. He is interested in medication to target sx of depression. Discussed lamictal, lithium. Pt requested educational handouts and would like to discuss this further tomorrow. 12/09: Start lithium ER 300 mg QHS for sx of depression, mood instability, and hx of SI. Renal labs wnl. 3/4: no change in mgmt 12/11- no med changes, lithium level scheduled for 12/12. Monitor response to medications. Monitor for safety in the milieu. Discharge on stabilization. Patient seen. Chart reviewed. Discussed with team. Obtain collateral contact info?as needed I spent minutes with the patient and/or on the patient floor today, greater than?50% of which was spent counseling/coordinating care. Reason for contiued inpatient stay Substantial Risk for: stable for discharge
[2021-12-12] MEDS: Nicotine Polacrilex 2 MG GUM BUCCAL (16:45)
[2021-12-12 18:00] VITALS: BP 138/69; PULSE 69; RESP 16; TEMP 37.1; O2SAT 96
[2021-12-12 18:31] LABS: Lithium 0.14 mmol/L (0.60-1.20)
[2021-12-12] MEDS: traZODone HCL 50 MG TABLET 150 MG PO (22:12)
[2021-12-12] MEDS: Lithium Carbonate ER 300 MG TABLET.ER PO (22:13)
[2021-12-13 07:49] VITALS: BP 123/57; PULSE 70; RESP 16; TEMP 36.9; O2SAT 99
[2021-12-13] MEDS: Cyproheptadine HCl 4 MG TABLET PO (08:40)
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
--- NOTE | 2021-12-13 13:45 | PC.NURSE ---
Patient is alert and oriented x 4. Patient is pleasant and cooperative with staff and peers. Patient reported a verbal understanding of discharge teachings and was in agreement. Patient reported that he is looking forward to going back to school and getting back on track . Patient reported that he will use next week to catch up on school work and get back on track . Patient denies SI/HI/AH/VH. Patient reports feeling safe to be discharged. Patient denies physical complaints at this time.
== END 2021-12-13 13:11 | disposition home or self-care (01) | DRG 753 ==
LOC: HO.ED 12-08 10:34 → HO.PADLT16 12-08 14:22
PROVIDERS: Social Worker; Admitting Provider Psychiatry & Neurology Psychiatry; Emergency Provider Emergency Medicine; Visit Provider Psychiatry & Neurology Psychiatry
DX: F31.81 Bipolar II disorder (principal); R45.851 Suicidal ideations; F64.0 Transsexualism; F10.10 Alcohol abuse, uncomplicated; F17.210 Nicotine dependence, cigarettes, uncomplicated; F43.10 Post-traumatic stress disorder, unspecified; Z71.6 Tobacco abuse counseling; Z20.822 Contact with and (suspected) exposure to COVID-19; Z79.899 Other long term (current) drug therapy
CPT/HCPCS: 36415; 80053; 80061; 80178; 80307; 81025; 82077; 82607; 82746; 83036; 83735; 84443; 85025; 87635; 93005; 99285